=== PATIENT | male | born 1995 | race Caucasian/White ===

== ENCOUNTER → 2019-02-04 10:17 | Outpatient (CLI) | payer OTHER, SELFPAY ==
[2019-02-04 12:02] LABS: Body Fluid Mononuclear WBC # 0.221 10^3/uL; Body Fluid Mononuclear WBC % 52.2 %; Body Fluid Polynuclear WBC # 0.202 10^3/uL; Body Fluid Polynuclear WBC % 47.8 %
[2019-02-04 12:09] LABS: Body Fluid Total Cells Counted 1.092 10^3/ul; White Blood Count/Body Fluid 0.846 10^3/uL
[2019-02-04 13:34] LABS: Appearance/Body Fluid SL CLDY; Auto B Fluid Analyzer BKGD Ct COUNTS W/IN LIMITS (W/IN LIMITS); Color/Body Fluid PINK; Lymphocytes 10 %; Macrophages 2 %; Monocytes 9 %; Plasma Cell/BodyFluid 2 %; Source- Body Fluid OTHER
[2019-02-04 13:35] LABS: Body Fluid QC Type(s) BF1Q, BF2Q; Other Cell Type/BF 77 %
[2019-02-07 12:40] LABS: Pathologist Comment/Body Fluid Reviewed
== END ==
PROVIDERS: Family Provider Family Medicine; PCP Family Medicine; Referring Provider Podiatrist Foot & Ankle Surgery; Visit Provider Podiatrist Foot & Ankle Surgery
DX: M67.471 Ganglion, right ankle and foot (principal)
CPT/HCPCS: 87015; 87070; 87075; 87101; 87116; 87205; 87206; 89050